=== PATIENT | female | born 1970 ===

== ENCOUNTER → 2021-06-19 | Outpatient (CLI) | payer OTHER | END | disposition home or self-care (01) | LOC: NUCLEAR 08:20 | DX: E04.1 Nontoxic single thyroid nodule (principal) | CPT/HCPCS: 78012; A9531 ==

== ENCOUNTER 2021-06-20 08:14 | Outpatient (CLI) | payer OTHER | END 2021-06-20 08:23 | disposition home or self-care (01) | LOC: NUCLEAR 08:14 | DX: E04.1 Nontoxic single thyroid nodule (principal) | CPT/HCPCS: 78013; A9512 ==